=== PATIENT | male | born 1965 | race Caucasian/White ===

== ENCOUNTER 2019-02-06 16:48 | Emergency (ER) | payer BC ==
[~2019-02-06] VITALS: Ht 175.3 cm; Wt 83.9 kg
[2019-02-06] MEDS ORDERED: ASPIR 8181 MG (16:57)
[2019-02-06] MEDS ORDERED: MEDROLPACK PO (17:43)
[2019-02-06] MEDS ORDERED: FLONASE ALLERG9.9 ML NASAL (17:43)
[2019-02-06] MEDS ORDERED: KETO10TA2 PO (17:43)
[2019-02-06] MEDS ORDERED: ZITHROMAX500 MG PO (17:43)
== END 2019-02-06 17:59 | disposition home or self-care (01) ==
LOC: ER 16:48
DX: H66.91 Otitis media, unspecified, right ear (principal)